=== PATIENT | male | born 1945 | race Caucasian/White ===

== ENCOUNTER 2018-07-11 08:45 | Emergency (ER) | payer MEDICARE ==
[~2018-07-11 08:45] MED LIST: ADULT ASPIRIN L81 MG; AMOXICILLIN500 MG PO; AUGMENTIN875TAB PO; CIPRODEX1 ML AU; COUMADIN2.5 MG PO; COUMADIN5 MG PO; LEVAQUIN750 MG PO; LEVOTHYROXIN125 MCG PO; LIPITOR40 MG PO; LORAZEPAM0.5 MG PO; METO25TAB PO; NITRO-DUR0.4 MG/HR SL; PREDNISONE20 MG PO; TRICOR145 MG PO; ULTRAM50 MG PO; ZITHROMAX250 MG PO
== END 2018-07-11 08:59 | disposition left against medical advice (07) ==
LOC: ED 08:45 → LWOBS 08:58
DX: Z91.19 Patient's noncompliance with other medical treatment and regimen (principal)

== ENCOUNTER → 2018-07-23 | Outpatient (REF) | payer MEDICARE ==
[2018-07-23 09:48] LABS: INTERNATIONAL NORMALIZED RATIO 1.9 RATIO (0.7-1.3)
== END | disposition home or self-care (01) ==
LOC: LAB 08:56
DX: Z51.81 Encounter for therapeutic drug level monitoring (principal); Z79.01 Long term (current) use of anticoagulants

== ENCOUNTER → 2018-08-04 | Outpatient (REF) | payer MEDICARE ==
[2018-08-04 11:38] LABS: PROTHROMBIN TIME 40.9 SECONDS (9.0-12.5)
== END | disposition home or self-care (01) ==
LOC: LAB 10:22
DX: Z51.81 Encounter for therapeutic drug level monitoring (principal); Z79.01 Long term (current) use of anticoagulants

== ENCOUNTER → 2018-08-12 | Outpatient (REF) | payer MEDICARE ==
[2018-08-12 11:30] LABS: INTERNATIONAL NORMALIZED RATIO 3.2 RATIO (0.7-1.3); PROTHROMBIN TIME 32.8 SECONDS (9.0-12.5)
== END | disposition home or self-care (01) ==
LOC: LAB 10:16
DX: Z51.81 Encounter for therapeutic drug level monitoring (principal); Z79.01 Long term (current) use of anticoagulants

== ENCOUNTER → 2018-08-20 | Outpatient (REF) | payer MEDICARE ==
[2018-08-20 11:58] LABS: INTERNATIONAL NORMALIZED RATIO 2.7 RATIO (0.7-1.3); PROTHROMBIN TIME 27.9 SECONDS (9.0-12.5)
== END | disposition home or self-care (01) ==
LOC: LAB 10:07
DX: Z51.81 Encounter for therapeutic drug level monitoring (principal); Z79.01 Long term (current) use of anticoagulants

== ENCOUNTER 2021-08-16 10:53 | Emergency (ER) | payer MEDICARE ==
[~2021-08-16] VITALS: Ht 177.8 cm; Wt 100.0 kg
[2021-08-16] VITALS (20 sets, daily range): BP systolic 177–202; BP diastolic 81–104
[2021-08-16] MEDS ORDERED: DEMADEX10 MG PO (14:08)
[2021-08-16] MEDS ORDERED: LUTEIN PO (14:10)
[2021-08-16] MEDS ORDERED: VITAMIN D325 MCG PO (14:12)
[2021-08-16] MEDS ORDERED: VITAMI16 PO (14:13)
[2021-08-16] MEDS ORDERED: [UNRECOGNIZED DRUG - REMARK] (14:14)
[2021-08-16 16:15] LABS: INTERNATIONAL NORMALIZED RATIO 2.6 RATIO (0.7-1.3); PROTHROMBIN TIME 25.7 SECONDS (9.0-12.5)
[2021-08-16] MEDS ORDERED: PROAIR HFA108 MCG/AC PO (17:14)
[2021-08-16] MEDS ORDERED: PREDNISONE50 MG PO (17:14)
[2021-08-16] MEDS ORDERED: ZPAK PO (17:14)
[2021-08-16] MEDS ORDERED: CHERATUSSIN PO (17:14)
== END 2021-08-16 18:11 | disposition home or self-care (01) ==
LOC: ED 10:53
PROVIDERS: Family Medicine
DX: J40 Bronchitis, not specified as acute or chronic (principal); I10 Essential (primary) hypertension; I48.91 Unspecified atrial fibrillation; I71.4 Abdominal aortic aneurysm, without rupture; I25.2 Old myocardial infarction; Z95.0 Presence of cardiac pacemaker; Z20.822 Contact with and (suspected) exposure to COVID-19